=== PATIENT | male | born 1965 | race Caucasian/White ===

== ENCOUNTER 2019-03-09 06:40 | Inpatient (IN) | payer OTHER ==
[2019-03-06 12:07] LABS: BASOPHILS % 0.4 % (0.0-1.0); EOSINOPHILS # (AUTO) 0.2 (0.0-0.4); EOSINOPHILS % 1.8 % (0.0-6.0); HEMATOCRIT 32.8 % (38.2-49.6); HEMOGLOBIN 11.7 g/dL (14.0-18.0); LYMPHOCYTES # (AUTO) 1.8 (1.0-3.2); LYMPHOCYTES % 19.6 % (18.0-39.1); MEAN CORPUSCULAR HEMOGLOBIN 30.9 pg (28-32); MEAN CORPUSCULAR HGB CONC 35.7 g/dL (31-35); MEAN CORPUSCULAR VOLUME 86.5 fL (81-99); MONOCYTES # (AUTO) 0.7 (0.2-0.8); MONOCYTES % 7.3 % (4.4-11.3); NEUTROPHILS # (AUTO) 6.3 (2.1-6.9); NEUTROPHILS % 70.6 % (38.7-80.0); PLATELET COUNT 212 x10e3/uL (140-360); RED BLOOD COUNT 3.79 x10e6/uL (4.3-5.7); RED CELL DISTRIBUTION WIDTH 13.7 % (11.7-14.4)
[2019-03-06 12:36] LABS: ANION GAP 12.4 mmol/L (8-16); CALCIUM 9.4 mg/dL (8.4-10.2); CREATININE, SERUM 1.84 mg/dL (0.72-1.25); POTASSIUM 4.4 mmol/L (3.5-5.1)
[~2019-03-09] VITALS: Ht 188 cm; Wt 160.6 kg
[~2019-03-09 06:40] MED LIST: BENAZEPRIL HCL10 MG PO; BYSTOLIC10 MG PO; COREG; CRESTOR PO; DIOVAN PO; GLIPIZIDE PO; GLIPIZIDE5 MG PO; LISINOPRIL10 MG PO; METFORMIN PO; TRESIBA SC
[2019-03-09] MEDS ORDERED: INSULIN REGULAR, HUMAN 100 UNIT/1 ML 3ML VIAL ONE ×2 (07:43→11:20)
[2019-03-09] MEDS ORDERED: ONDANSETRON HCL INJ 2MG/ML 2ML 2 MG/ML VIAL IV PRN (11:30)
[2019-03-09] MEDS ORDERED: ACETAMINOPHEN 1000 MG/100 ML IV PRN (11:30)
[2019-03-09] MEDS ORDERED: HYDROCODONE/APAP 7.5MG-325MG 1 EA TAB PO PRN (11:30)
[2019-03-09] MEDS ORDERED: HYDROMORPHONE 1MG/1ML INJ IV PRN (11:30)
[2019-03-09] MEDS ORDERED: HYDROMORPHONE 2MG/ML 2 MG/ML ML IV PRN (11:45)
[2019-03-09] MEDS: INSULIN REGULAR, HUMAN 100 UNIT/1 ML 3ML VIAL SQ SCH ×3 (12:38→21:09)
[2019-03-09] MEDS: SODIUM CHLORIDE 0.9% 1000ML 1,000 ML IV SCH ×2 (12:38→21:17)
[2019-03-09 12:44] VITALS: BP 160/76
[2019-03-09 12:55] VITALS: BP 160/74
[2019-03-09] MEDS: PANTOPRAZOLE 40 MG 10ML VIAL IV SCH (14:32)
[2019-03-09 15:43] VITALS: BP 141/69
--- NOTE | 2019-03-09 18:20 | Operative Report ---
DATE OF PROCEDURE: 03/09/2019 SURGEON: Caden Colin MD PREOPERATIVE DIAGNOSIS: Large thyroid goiter. POSTOPERATIVE DIAGNOSIS: Large thyroid goiter. OPERATION PERFORMED: Total thyroidectomy with parathyroid preservation. ASSISTANTS: Dr. Amanuel Colin and MILE Shah. ANESTHESIA: General. COMPLICATIONS: None. ESTIMATED BLOOD LOSS: 75 mL. DESCRIPTION OF PROCEDURE: With the patient lying in bed in the supine position under good general endotracheal anesthesia, the neck and chest were prepped with Betadine solution and draped in the usual manner. A collar incision was made, was carried down through the subcutaneous tissue and through the platysma. Flaps were then developed superiorly and inferiorly. The strap muscles were then at the midline and immediately a very large goiter was encountered, which encompassed both the right and the left lobe as well as the isthmus of the thyroid. It was all grossly abnormal and enlarged with bilateral large nodules, but there were no suspicious lesions anywhere within the gland. The right lobe was actually a bit larger than the left. We then went ahead and proceeded with thyroidectomy. The left side was mobilized first. Middle thyroid vein was identified, ligated with 3-0 silk and divided. Upper pole vessels were identified, divided between 2-0 silk ties, and the lower pole vessels were divided with 3-0 silk. The upper and lower parathyroid were identified and preserved. The recurrent laryngeal nerve was identified and preserved. The thyroid was then slowly and carefully swung medially off the trachea all the way to the center of the midline. After this was done, the left side was then similarly mobilized, again ligating the middle thyroid vein with 3-0 silk. The upper pole vessels were divided between 2-0 silk. The lower pole vessels were divided with 3-0 silk. The recurrent laryngeal and both upper and lower parathyroids were identified and preserved and then this gland was slowly and carefully swung off the trachea and removed. The upper pole vessel on the right side was ligated with a long tie and identified as such for pathology. The whole area was then thoroughly irrigated. Perfect hemostasis was ascertained. A quarter-inch Dennison drain was then left on each side of the neck and brought through the incision, the strap muscles at the midline were then reapproximated with interrupted sutures of 3-0 Vicryl. The platysma was reapproximated with 3-0 Vicryl and the skin was closed with clips. Dressings were applied. The sponge, lap, needle count was correct. The patient tolerated the procedure well and returned to the recovery room in stable condition. MD MITZY Sam/CAIO /[id number]
[2019-03-09] MEDS ORDERED: FENTANYL CITRATE/PF 100MCG/2 ML INJ ONE (19:46)
[2019-03-09] MEDS ORDERED: MIDAZOLAM HCL 2 MG/2 ML VIAL ONE (19:46)
[2019-03-09 20:00] VITALS: BP 157/82
[2019-03-09 21:35] VITALS: BP 157/82
--- NOTE | 2019-03-09 22:30 | NUR ---
Patient was assisted to toilet and voided with no problems.
[2019-03-10] VITALS (8 sets, daily range): BP systolic 142–185; BP diastolic 74–84
[2019-03-10 07:00] LABS: BASOPHILS % 0.3 % (0.0-1.0); EOSINOPHILS # (AUTO) 0.1 (0.0-0.4); EOSINOPHILS % 0.8 % (0.0-6.0); HEMATOCRIT 32.1 % (38.2-49.6); HEMOGLOBIN 10.8 g/dL (14.0-18.0); LYMPHOCYTES # (AUTO) 2.2 (1.0-3.2); LYMPHOCYTES % 22.2 % (18.0-39.1); MEAN CORPUSCULAR HGB CONC 33.6 g/dL (31-35); MEAN CORPUSCULAR VOLUME 89.2 fL (81-99); MONOCYTES % 9.8 % (4.4-11.3); NEUTROPHILS # (AUTO) 6.7 (2.1-6.9); NEUTROPHILS % 66.4 % (38.7-80.0); PLATELET COUNT 191 x10e3/uL (140-360); RED CELL DISTRIBUTION WIDTH 13.7 % (11.7-14.4)
[2019-03-10 07:32] LABS: ANION GAP 12.3 mmol/L (8-16); CALCIUM 8.7 mg/dL (8.4-10.2); CREATININE, SERUM 1.57 mg/dL (0.72-1.25); POTASSIUM 4.3 mmol/L (3.5-5.1)
[2019-03-10] MEDS: INSULIN REGULAR, HUMAN 100 UNIT/1 ML 3ML VIAL SQ SCH ×4 (09:15→21:13)
[2019-03-10] MEDS: BENAZEPRIL HCL 10 MG TAB PO SCH (09:15)
[2019-03-10] MEDS: NEBIVOLOL 10 MG TAB PO SCH (09:15)
[2019-03-10] MEDS: SODIUM CHLORIDE 0.9% 1000ML 1,000 ML IV SCH ×2 (13:44→21:26)
--- NOTE | 2019-03-10 13:57 | NUR ---
Nutrition Screen Note RD Recommendation for Physician: -Continue ADA diet as ordered Plan of Care: RD following, monitoring for tolerance and adequacy Nutrition reason for involvement: Nutrition Risk Trigger MST Primary Diagnose(s): massive goiter PMH: no H&P in chart Ht: 74in Wt: 355.38lb BMI: 45.6kg/m2 IBW: 190lb RD Assessment: (03/10) Chart reviewed. Labs and meds reviewed. 53yo M, who was admitted for massive goiter. Visited pt in the room. Pt reported tolerating full liquid prior to advancing to ADA diet. No complains of nausea or vomiting. Pt denied any chewing or swallowing difficulty. No recent weight loss [employer]ILD[employer]GER. Will continue to monitor and follow. Current Diet: ADA diet Malnutrition Evaluation (03/10) The patient does not meet criteria for a specified degree of malnutrition at this time. Will re-evaluate at follow-up as appropriate. Diet Education Needs Assessment: Diet education not indicated. Nutrition Care Level: low Signed: Shruthi Ochoa, MS, RD, LD
[2019-03-10] MEDS: PANTOPRAZOLE 40 MG 10ML VIAL IV SCH (16:46)
[2019-03-11] VITALS: BP 172/81
[2019-03-11 04:00] VITALS: BP 143/67
[2019-03-11 08:33] VITALS: BP 160/75
[2019-03-11 09:32] VITALS: BP 162/72
[2019-03-11] MEDS: NEBIVOLOL 10 MG TAB PO SCH (09:32)
[2019-03-11] MEDS: INSULIN REGULAR, HUMAN 100 UNIT/1 ML 3ML VIAL SQ SCH ×3 (09:32→17:19)
[2019-03-11] MEDS: BENAZEPRIL HCL 10 MG TAB PO SCH (09:32)
[2019-03-11] MEDS: PANTOPRAZOLE 40 MG 10ML VIAL IV SCH (12:44)
[2019-03-11 16:33] VITALS: BP 162/72
[2019-03-11] MEDS: SODIUM CHLORIDE 0.9% 1000ML 1,000 ML IV SCH (17:26)
[2019-03-11] MEDS ORDERED: SYNTHROID125 MCG PO (18:17)
== END 2019-03-11 19:02 | disposition home or self-care (01) | DRG 626 ==
LOC: OR 06:40 → PACU V 11:22 → MED/SURG 11:49
PROVIDERS: ADMIT Surgery; ATTEND Surgery
PROC: 0GTK0ZZ Resection of Thyroid Gland, Open Approach (ICD-10-PCS; principal; 2019-03-09 08:30)
DX: E04.2 Nontoxic multinodular goiter (principal); Z68.42 Body mass index [BMI] 45.0-49.9, adult; E11.9 Type 2 diabetes mellitus without complications; E66.01 Morbid (severe) obesity due to excess calories; Z79.4 Long term (current) use of insulin
CPT/HCPCS: 36415; 80048; 82310; 82948; 85025; 88307; 88311; 93005; J2250; J7030

== ENCOUNTER → 2021-04-12 | Outpatient (CLI) | payer OTHER ==
[~2021-04-12] MED LIST changes: +COLLAGENASE OINTMENT 30 GM TUBE ONE; +LIDOCAINE/PRILOCAINE 2.5-2.5% KIT ONE; +SYNTHROID125 MCG PO
== END ==
LOC: WCC 13:06
PROVIDERS: ATTEND Podiatrist
DX: E11.621 Type 2 diabetes mellitus with foot ulcer (principal); E11.65 Type 2 diabetes mellitus with hyperglycemia; L03.116 Cellulitis of left lower limb; L97.421 Non-pressure chronic ulcer of left heel and midfoot limited to breakdown of skin; I10 Essential (primary) hypertension; E78.5 Hyperlipidemia, unspecified; E66.3 Overweight; Z79.4 Long term (current) use of insulin
CPT/HCPCS: 36415; 82948

== ENCOUNTER → 2021-04-19 | Outpatient (CLI) | payer OTHER ==
[~2021-04-19] MED LIST changes: -COLLAGENASE OINTMENT 30 GM TUBE ONE; -LIDOCAINE/PRILOCAINE 2.5-2.5% KIT ONE
== END ==
LOC: WCC 13:42
PROVIDERS: ATTEND Podiatrist
DX: E11.621 Type 2 diabetes mellitus with foot ulcer (principal); E11.622 Type 2 diabetes mellitus with other skin ulcer; E11.65 Type 2 diabetes mellitus with hyperglycemia; L97.421 Non-pressure chronic ulcer of left heel and midfoot limited to breakdown of skin; L03.116 Cellulitis of left lower limb; I10 Essential (primary) hypertension; E78.5 Hyperlipidemia, unspecified; E66.3 Overweight; Z79.4 Long term (current) use of insulin

== ENCOUNTER → 2021-04-26 | Outpatient (CLI) | payer OTHER | LOC: WCC 13:18 | PROVIDERS: ATTEND Podiatrist | DX: E11.621 Type 2 diabetes mellitus with foot ulcer (principal); E11.622 Type 2 diabetes mellitus with other skin ulcer; E11.65 Type 2 diabetes mellitus with hyperglycemia; L03.116 Cellulitis of left lower limb; L97.421 Non-pressure chronic ulcer of left heel and midfoot limited to breakdown of skin; I10 Essential (primary) hypertension; E78.5 Hyperlipidemia, unspecified; E66.3 Overweight; Z79.4 Long term (current) use of insulin ==

== ENCOUNTER → 2021-04-28 | Outpatient (CLI) | payer OTHER | LOC: CARD 11:34 | PROVIDERS: ATTEND Podiatrist | DX: E11.621 Type 2 diabetes mellitus with foot ulcer (principal); L97.421 Non-pressure chronic ulcer of left heel and midfoot limited to breakdown of skin | CPT/HCPCS: 93922; 93925 ==

== ENCOUNTER → 2021-05-03 | Outpatient (CLI) | payer OTHER | LOC: WCC 12:41 | PROVIDERS: ATTEND Podiatrist | DX: E11.621 Type 2 diabetes mellitus with foot ulcer (principal); E11.622 Type 2 diabetes mellitus with other skin ulcer; E11.65 Type 2 diabetes mellitus with hyperglycemia; L03.116 Cellulitis of left lower limb; L97.421 Non-pressure chronic ulcer of left heel and midfoot limited to breakdown of skin; I10 Essential (primary) hypertension; E78.5 Hyperlipidemia, unspecified; E66.3 Overweight; Z79.4 Long term (current) use of insulin | CPT/HCPCS: 15275; Q4101 ==

== ENCOUNTER → 2021-05-10 | Outpatient (CLI) | payer OTHER | LOC: WCC 13:54 | PROVIDERS: ATTEND Podiatrist | DX: E11.621 Type 2 diabetes mellitus with foot ulcer (principal); E11.622 Type 2 diabetes mellitus with other skin ulcer; E11.65 Type 2 diabetes mellitus with hyperglycemia; L97.421 Non-pressure chronic ulcer of left heel and midfoot limited to breakdown of skin; L03.116 Cellulitis of left lower limb; I10 Essential (primary) hypertension; E78.5 Hyperlipidemia, unspecified; E66.3 Overweight; Z79.4 Long term (current) use of insulin | CPT/HCPCS: 15275; Q4101 ==

== ENCOUNTER → 2021-05-17 | Outpatient (CLI) | payer OTHER ==
[~2021-05-17] MED LIST changes: +LIDOCAINE/PRILOCAINE 2.5-2.5% KIT ONE
== END ==
LOC: WCC 12:26
PROVIDERS: ATTEND Podiatrist
DX: E11.621 Type 2 diabetes mellitus with foot ulcer (principal); E11.622 Type 2 diabetes mellitus with other skin ulcer; E11.65 Type 2 diabetes mellitus with hyperglycemia; L03.116 Cellulitis of left lower limb; L97.421 Non-pressure chronic ulcer of left heel and midfoot limited to breakdown of skin; I10 Essential (primary) hypertension; E78.5 Hyperlipidemia, unspecified; E66.3 Overweight; Z79.4 Long term (current) use of insulin
CPT/HCPCS: 15275; Q4128

== ENCOUNTER → 2021-05-24 | Outpatient (CLI) | payer OTHER ==
[~2021-05-24] MED LIST changes: -LIDOCAINE/PRILOCAINE 2.5-2.5% KIT ONE
== END ==
LOC: WCC 13:20
PROVIDERS: ATTEND Podiatrist
DX: E11.621 Type 2 diabetes mellitus with foot ulcer (principal); E11.622 Type 2 diabetes mellitus with other skin ulcer; E11.65 Type 2 diabetes mellitus with hyperglycemia; L97.421 Non-pressure chronic ulcer of left heel and midfoot limited to breakdown of skin; L03.116 Cellulitis of left lower limb; I10 Essential (primary) hypertension; E78.5 Hyperlipidemia, unspecified; E66.3 Overweight; Z79.4 Long term (current) use of insulin
CPT/HCPCS: 15275; Q4128

== ENCOUNTER → 2021-05-31 | Outpatient (CLI) | payer OTHER | LOC: WCC 13:03 | PROVIDERS: ATTEND Podiatrist | DX: E11.621 Type 2 diabetes mellitus with foot ulcer (principal); E11.622 Type 2 diabetes mellitus with other skin ulcer; E11.65 Type 2 diabetes mellitus with hyperglycemia; L97.421 Non-pressure chronic ulcer of left heel and midfoot limited to breakdown of skin; Z79.4 Long term (current) use of insulin; L03.116 Cellulitis of left lower limb; I10 Essential (primary) hypertension; E78.5 Hyperlipidemia, unspecified; E66.3 Overweight | CPT/HCPCS: 15275; Q4128 ==

== ENCOUNTER → 2021-06-07 | Outpatient (CLI) | payer OTHER | LOC: WCC 13:22 | PROVIDERS: ATTEND Podiatrist | DX: E11.621 Type 2 diabetes mellitus with foot ulcer (principal); E11.622 Type 2 diabetes mellitus with other skin ulcer; E11.65 Type 2 diabetes mellitus with hyperglycemia; L97.421 Non-pressure chronic ulcer of left heel and midfoot limited to breakdown of skin; L03.116 Cellulitis of left lower limb; I10 Essential (primary) hypertension; E78.5 Hyperlipidemia, unspecified; E66.3 Overweight; Z79.4 Long term (current) use of insulin ==

== ENCOUNTER → 2021-06-14 | Outpatient (CLI) | payer OTHER ==
[~2021-06-14] MED LIST changes: +LIDOCAINE/PRILOCAINE 2.5-2.5% KIT ONE
== END ==
LOC: WCC 12:41
PROVIDERS: ATTEND Podiatrist
DX: E11.621 Type 2 diabetes mellitus with foot ulcer (principal); E11.622 Type 2 diabetes mellitus with other skin ulcer; E11.65 Type 2 diabetes mellitus with hyperglycemia; L97.421 Non-pressure chronic ulcer of left heel and midfoot limited to breakdown of skin; L03.116 Cellulitis of left lower limb; I10 Essential (primary) hypertension; E78.5 Hyperlipidemia, unspecified; E66.3 Overweight; Z79.4 Long term (current) use of insulin
CPT/HCPCS: 15275; Q4128

== ENCOUNTER → 2021-06-21 | Outpatient (CLI) | payer OTHER ==
[~2021-06-21] MED LIST changes: -LIDOCAINE/PRILOCAINE 2.5-2.5% KIT ONE
== END ==
LOC: WCC 13:41
PROVIDERS: ATTEND Podiatrist
DX: E11.621 Type 2 diabetes mellitus with foot ulcer (principal); E11.622 Type 2 diabetes mellitus with other skin ulcer; E11.65 Type 2 diabetes mellitus with hyperglycemia; L03.116 Cellulitis of left lower limb; L97.421 Non-pressure chronic ulcer of left heel and midfoot limited to breakdown of skin; I10 Essential (primary) hypertension; E78.5 Hyperlipidemia, unspecified; E66.3 Overweight; Z79.4 Long term (current) use of insulin

== ENCOUNTER → 2021-06-28 | Outpatient (CLI) | payer OTHER | LOC: WCC 13:02 | PROVIDERS: ATTEND Podiatrist | DX: E11.621 Type 2 diabetes mellitus with foot ulcer (principal); E11.622 Type 2 diabetes mellitus with other skin ulcer; E11.65 Type 2 diabetes mellitus with hyperglycemia; L97.421 Non-pressure chronic ulcer of left heel and midfoot limited to breakdown of skin; L03.116 Cellulitis of left lower limb; I10 Essential (primary) hypertension; E78.5 Hyperlipidemia, unspecified; E66.3 Overweight; Z79.4 Long term (current) use of insulin | CPT/HCPCS: 15275; Q4101 ==

== ENCOUNTER → 2021-07-05 | Outpatient (CLI) | payer OTHER | LOC: WCC 12:49 | PROVIDERS: ATTEND Podiatrist | DX: E11.621 Type 2 diabetes mellitus with foot ulcer (principal); E11.622 Type 2 diabetes mellitus with other skin ulcer; E11.65 Type 2 diabetes mellitus with hyperglycemia; L97.421 Non-pressure chronic ulcer of left heel and midfoot limited to breakdown of skin; L03.116 Cellulitis of left lower limb; I10 Essential (primary) hypertension; E78.5 Hyperlipidemia, unspecified; Z79.4 Long term (current) use of insulin; E66.3 Overweight | CPT/HCPCS: 15275; Q4101 ==

== ENCOUNTER → 2021-07-12 | Outpatient (CLI) | payer OTHER | LOC: WCC 14:56 | PROVIDERS: ATTEND Podiatrist | DX: E11.621 Type 2 diabetes mellitus with foot ulcer (principal); E11.622 Type 2 diabetes mellitus with other skin ulcer; E11.65 Type 2 diabetes mellitus with hyperglycemia; L97.421 Non-pressure chronic ulcer of left heel and midfoot limited to breakdown of skin; L03.116 Cellulitis of left lower limb; Z79.4 Long term (current) use of insulin; I10 Essential (primary) hypertension; E78.5 Hyperlipidemia, unspecified; E66.3 Overweight ==

== ENCOUNTER → 2021-07-19 | Outpatient (CLI) | payer OTHER | LOC: WCC 13:25 | PROVIDERS: ATTEND Podiatrist | DX: E11.621 Type 2 diabetes mellitus with foot ulcer (principal); E11.622 Type 2 diabetes mellitus with other skin ulcer; E11.65 Type 2 diabetes mellitus with hyperglycemia; L97.421 Non-pressure chronic ulcer of left heel and midfoot limited to breakdown of skin; L03.116 Cellulitis of left lower limb; I10 Essential (primary) hypertension; E78.5 Hyperlipidemia, unspecified; E66.3 Overweight; Z79.4 Long term (current) use of insulin | CPT/HCPCS: 15275; Q4101 ==

== ENCOUNTER → 2021-07-26 | Outpatient (CLI) | payer OTHER | LOC: WCC 12:51 | PROVIDERS: ATTEND Podiatrist | DX: E11.621 Type 2 diabetes mellitus with foot ulcer (principal); E11.622 Type 2 diabetes mellitus with other skin ulcer; E11.65 Type 2 diabetes mellitus with hyperglycemia; L97.421 Non-pressure chronic ulcer of left heel and midfoot limited to breakdown of skin; L03.116 Cellulitis of left lower limb; I87.2 Venous insufficiency (chronic) (peripheral); R60.0 Localized edema; I10 Essential (primary) hypertension; E78.5 Hyperlipidemia, unspecified; E66.3 Overweight; Z79.4 Long term (current) use of insulin ==

== ENCOUNTER → 2021-08-02 | Outpatient (CLI) | payer OTHER | LOC: WCC 13:37 | PROVIDERS: ATTEND Podiatrist | DX: E11.621 Type 2 diabetes mellitus with foot ulcer (principal); E11.622 Type 2 diabetes mellitus with other skin ulcer; E11.65 Type 2 diabetes mellitus with hyperglycemia; L03.116 Cellulitis of left lower limb; L97.421 Non-pressure chronic ulcer of left heel and midfoot limited to breakdown of skin; I87.2 Venous insufficiency (chronic) (peripheral); R60.0 Localized edema; I10 Essential (primary) hypertension; E78.5 Hyperlipidemia, unspecified; Z79.4 Long term (current) use of insulin; E66.3 Overweight ==

== ENCOUNTER → 2021-08-09 | Outpatient (CLI) | payer OTHER | LOC: WCC 12:58 | PROVIDERS: ATTEND Podiatrist | DX: E11.621 Type 2 diabetes mellitus with foot ulcer (principal); E11.622 Type 2 diabetes mellitus with other skin ulcer; E11.65 Type 2 diabetes mellitus with hyperglycemia; L97.421 Non-pressure chronic ulcer of left heel and midfoot limited to breakdown of skin; L03.116 Cellulitis of left lower limb; I87.2 Venous insufficiency (chronic) (peripheral); R60.0 Localized edema; I10 Essential (primary) hypertension; E66.3 Overweight; E78.5 Hyperlipidemia, unspecified; Z79.4 Long term (current) use of insulin ==

== ENCOUNTER → 2021-08-16 | Outpatient (CLI) | payer OTHER | LOC: WCC 13:13 | PROVIDERS: ATTEND Podiatrist | DX: E11.621 Type 2 diabetes mellitus with foot ulcer (principal); E11.622 Type 2 diabetes mellitus with other skin ulcer; E11.65 Type 2 diabetes mellitus with hyperglycemia; L97.421 Non-pressure chronic ulcer of left heel and midfoot limited to breakdown of skin; L03.116 Cellulitis of left lower limb; I87.2 Venous insufficiency (chronic) (peripheral); R60.0 Localized edema; I10 Essential (primary) hypertension; E78.5 Hyperlipidemia, unspecified; E66.3 Overweight; Z79.4 Long term (current) use of insulin ==

== ENCOUNTER → 2021-08-23 | Outpatient (CLI) | payer OTHER | LOC: WCC 12:56 | PROVIDERS: ATTEND Podiatrist | DX: E11.621 Type 2 diabetes mellitus with foot ulcer (principal); E11.622 Type 2 diabetes mellitus with other skin ulcer; E11.65 Type 2 diabetes mellitus with hyperglycemia; L97.421 Non-pressure chronic ulcer of left heel and midfoot limited to breakdown of skin; L03.116 Cellulitis of left lower limb; I87.2 Venous insufficiency (chronic) (peripheral); R60.0 Localized edema; I10 Essential (primary) hypertension; E78.5 Hyperlipidemia, unspecified; E66.3 Overweight; Z79.4 Long term (current) use of insulin ==

== ENCOUNTER → 2021-08-30 | Outpatient (CLI) | payer OTHER | LOC: WCC 12:49 | PROVIDERS: ATTEND Podiatrist | DX: E11.621 Type 2 diabetes mellitus with foot ulcer (principal); E11.65 Type 2 diabetes mellitus with hyperglycemia; L97.421 Non-pressure chronic ulcer of left heel and midfoot limited to breakdown of skin; L03.116 Cellulitis of left lower limb; I87.2 Venous insufficiency (chronic) (peripheral); R60.0 Localized edema; I10 Essential (primary) hypertension; E78.5 Hyperlipidemia, unspecified; E66.3 Overweight; Z79.4 Long term (current) use of insulin ==

== ENCOUNTER → 2021-09-06 | Outpatient (CLI) | payer OTHER | LOC: WCC 13:28 | PROVIDERS: ATTEND Podiatrist | DX: E11.621 Type 2 diabetes mellitus with foot ulcer (principal); E11.622 Type 2 diabetes mellitus with other skin ulcer; E11.65 Type 2 diabetes mellitus with hyperglycemia; L97.421 Non-pressure chronic ulcer of left heel and midfoot limited to breakdown of skin; L03.116 Cellulitis of left lower limb; I87.2 Venous insufficiency (chronic) (peripheral); R60.0 Localized edema; I10 Essential (primary) hypertension; E78.5 Hyperlipidemia, unspecified; E66.3 Overweight; Z79.4 Long term (current) use of insulin ==

== ENCOUNTER 2021-09-17 22:51 | Emergency (ER) | payer OTHER ==
[~2021-09-17] VITALS: Ht 188 cm; Wt 170.1 kg
[2021-09-17 23:19] LABS: BASOPHILS # (AUTO) 0.1 (0.0-0.1); BASOPHILS % 0.5 % (0.0-1.0); EOSINOPHILS # (AUTO) 0.2 (0.0-0.4); EOSINOPHILS % 1.5 % (0.0-6.0); HEMATOCRIT 33.8 % (38.2-49.6); HEMOGLOBIN 11.2 g/dL (14.0-18.0); LYMPHOCYTES # (AUTO) 1.3 (1.0-3.2); LYMPHOCYTES % 9.7 % (18.0-39.1); MEAN CORPUSCULAR HEMOGLOBIN 30.6 pg (28-32); MEAN CORPUSCULAR HGB CONC 33.1 g/dL (31-35); MEAN CORPUSCULAR VOLUME 92.3 fL (81-99); MONOCYTES % 7.4 % (4.4-11.3); NEUTROPHILS # (AUTO) 10.9 (2.1-6.9); NEUTROPHILS % 80.3 % (38.7-80.0); PLATELET COUNT 226 x10e3/uL (140-360); RED BLOOD COUNT 3.66 x10e6/uL (4.3-5.7); RED CELL DISTRIBUTION WIDTH 13.4 % (11.7-14.4)
[2021-09-17 23:38] LABS: ALBUMIN 3.5 g/dL (3.5-5.0); ANION GAP 17.8 mmol/L (8-16); CALCIUM 8.6 mg/dL (8.4-10.2); CREATININE, SERUM 2.04 mg/dL (0.72-1.25); POTASSIUM 4.8 mmol/L (3.5-5.1)
[2021-09-17] MEDS ORDERED: SODIUM CHLORIDE 0.9% 1000ML 1,000 ML IV STA (23:45)
[2021-09-18] MEDS ORDERED: IOPAMIDOL 370 MG/ML 200 ML INFUS..BTL INJ ONE (00:01)
[2021-09-18] MEDS ORDERED: SODIUM CHLORIDE 0.9% 100 ML ONE (00:02)
== END 2021-09-18 04:29 | disposition home or self-care (01) ==
LOC: ER 23:00
DX: R53.1 Weakness (principal); R20.0 Anesthesia of skin; E11.65 Type 2 diabetes mellitus with hyperglycemia; I10 Essential (primary) hypertension; E78.5 Hyperlipidemia, unspecified
CPT/HCPCS: 36415; 70450; 75635; 80053; 85025; 99284; J7030; J7050; Q9967